=== PATIENT | female | born 1980 | race American Indian/Alaskan Native ===

== ENCOUNTER 2019-02-04 11:59 | Emergency (ER) | payer SELFPAY ==
--- NOTE | 2019-02-04 12:08 | Event Note ---
Date: 02/04/19 38 y.o , LMP around january 05, but states bleeding never stops, wearing 7 pads per days. has not yet seen log scaler, moved one year ago. Denies any pain. Sexually active, last intercourse 2 weeks ago. pmhx: htn pshx: c-sections x2 sochx: +tobacco, +marijuana, no alcohol or others.
[2019-02-04 12:31] LABS: Basophils % (Auto) 0.6 % (0.0-1.8); Eosinophils # (Auto) 0.1 K/mm3 (0.0-0.4); Eosinophils % (Auto) 1.1 % (0.0-4.3); Hematocrit 28.2 % (30.3-42.9); Hemoglobin 8.8 gm/dl (10.1-14.3); Lymphocytes # (Auto) 2.2 K/mm3 (1.2-5.4); Lymphocytes % (Auto) 39.2 % (13.4-35.0); Mean Corpuscular HGB Conc 31 % (30-34); Monocytes # (Auto) 0.5 K/mm3 (0.0-0.8); Platelet Count 306 K/mm3 (140-440); Red Blood Count 4.23 M/mm3 (3.65-5.03); Red Cell Distribution Width 19.2 % (13.2-15.2)
[2019-02-04 12:32] LABS: Mean Corpuscular Volume 67 fl (79-97)
[2019-02-04 12:44] LABS: HCG Qualitative,Urine Negative (Negative)
[2019-02-04 12:44] LABS: BUN/Creatinine Ratio 10; Blood Urea Nitrogen 7 mg/dL (7-17); Calcium 8.9 mg/dL (8.4-10.2); Hemolysis Index 1
[2019-02-04 12:45] LABS: Bilirubin,Urine NEG (Negative); Color,Urine Yellow (Yellow)
[2019-02-04 12:46] LABS: Blood,Urine MOD (Negative); Urobilinogen,Urine < 2.0 mg/dL (<2.0)
[2019-02-04 12:55] LABS: Protein,Urine >500 mg/dL (Negative); RBC,Urine > 182.0 /HPF (0.0-6.0); WBC,Urine > 182.0 /HPF (0.0-6.0)
[2019-02-04] MEDS ORDERED: NORMODYNE PO ONE (13:02)
[2019-02-04] MEDS ORDERED: K-DUR PO ONE (13:39)
--- NOTE | 2019-02-04 15:01 | Emergency Department Report ---
ED Female HPI - General Chief complaint: Vaginal Bleeding Stated complaint: BLEEDING FOR A MONTH Time Seen by Provider: 02/04/19 12:45 Source: patient Mode of arrival: Ambulatory Limitations: No Limitations - History of Present Illness Initial comments: This is a 38-year-old -[place] female who presents to the emergency room with abnormal vaginal bleeding for 1 minute. LMP 02/04/2019, . Patient reports heavy bleeding that never stops and large clots. She is wetting 7 pads per day. Patient reports recently moving to this area. Reports history of hypertension, endometriosis, and ovarian cyst. Current tobacco and marijuana smoker. She is sexually active with last intercourse 2 weeks ago. Denies pain, vaginal discharge, dysuria, and fever. MD Complaint: vaginal bleeding, pelvic pain Onset/Timin -: month(s) Severity scale (0 -10): 0 Improves with: none Worsens with: menstrual period Are you Now?: No Last Menstrual Period: 02/04/19 EDC: 11/11/19 Associated Symptoms: vaginal bleeding. denies: vaginal discharge, abdominal pain, nausea/vomiting, fever/chills, headaches, loss of appetite, dysuria, hematuria, rash, seizure, shortness of breath, syncope, weakness - Related Data Previous Rx's Medication Instructions Recorded Last Taken Type Sulfamethoxazole/Trimethoprim 1 each PO BID #6 tablet 02/04/19 Unknown Rx [Bactrim DS TAB] medroxyPROGESTERone ACETATE 10 mg PO QDAY #10 tablet 02/04/19 Unknown Rx [Provera] Allergies Allergy/AdvReac Type Severity Reaction Status Date / Time No Known Allergies Allergy Unverified 02/04/19 12:01 ED Review of Systems ROS: Stated complaint: BLEEDING FOR A MONTH Other details as noted in HPI Constitutional: denies: chills, fever Respiratory: denies: cough, shortness of breath, wheezing Cardiovascular: denies: chest pain, palpitations Gastrointestinal: denies: abdominal pain, nausea, diarrhea Genitourinary: abnormal menses. denies: urgency, dysuria, discharge Musculoskeletal: denies: back pain, joint swelling, arthralgia Skin: denies: rash, lesions Neurological: denies: headache, weakness, paresthesias Psychiatric: denies: anxiety, depression ED Past Medical Hx - Past Medical History Previous Medical History?: Yes Hx Hypertension: Yes - Surgical History Past Surgical History?: Yes Additional Surgical History: x 2 - Social History Smoking Status: Current Every Day Smoker Substance Use Type: Marijuana - Medications Home Medications: Home Medications Medication Instructions Recorded Confirmed Last Taken Type Sulfamethoxazole/Trimethoprim 1 each PO BID #6 tablet 02/04/19 Unknown Rx [Bactrim DS TAB] medroxyPROGESTERone ACETATE 10 mg PO QDAY #10 tablet 02/04/19 Unknown Rx [Provera] ED Physical Exam - General Limitations: No Limitations General appearance: alert, in no apparent distress, obese (morbidly) - Respiratory Respiratory exam: Present: normal lung sounds bilaterally. Absent: respiratory distress - Cardiovascular Cardiovascular Exam: Present: regular rate, normal rhythm. Absent: systolic murmur, diastolic murmur, rubs, gallop - GI/Abdominal GI/Abdominal exam: Present: soft, normal bowel sounds. Absent: distended, te nderness, guarding, rebound, rigid, organomegaly - Back Exam Back exam: Absent: CVA tenderness (R), CVA tenderness (L) - Neurological Exam Neurological exam: Present: alert, oriented X3, normal gait - Psychiatric Psychiatric exam: Present: normal affect, normal mood - Skin Skin exam: Present: warm, dry, intact, normal color. Absent: rash ED Course Vital Signs 02/04/19 02/04/19 02/04/19 12:05 13:12 13:20 Temperature 98.2 F 99.0 F Pulse Rate 98 H 91 H 92 H Respiratory 20 17 Rate Blood Pressure 156/102 148/84 Blood Pressure 148/84 [Right] O2 Sat by Pulse 98 99 Oximetry 02/04/19 15:05 Temperature 98.3 F Pulse Rate 90 Respiratory 16 Rate Blood Pressure Blood Pressure 139/87 [Right] O2 Sat by Pulse 98 Oximetry ED Medical Decision Making - Lab Data Result diagrams: 02/04/19 12:18 02/04/19 12:18 Lab Results 02/04/19 02/04/19 02/04/19 Range/Units 12:18 12:18 12:20 WBC 5.5 (4.5-11.0) K/mm3 RBC 4.23 (3.65-5.03) M/mm3 Hgb 8.8 L (10.1-14.3) gm/dl Hct 28.2 L (30.3-42.9) % MCV 67 L (79-97) fl MCH 21 L (28-32) pg MCHC 31 (30-34) % RDW 19.2 H (13.2-15.2) % Plt Count 306 (140-440) K/mm3 Lymph % (Auto) 39.2 H (13.4-35.0) % [place] % (Auto) 9.0 H (0.0-7.3) % Eos % (Auto) 1.1 (0.0-4.3) % Baso % (Auto) 0.6 (0.0-1.8) % Lymph # 2.2 (1.2-5.4) K/mm3 [place] # 0.5 (0.0-0.8) K/mm3 Eos # 0.1 (0.0-0.4) K/mm3 Baso # 0.0 (0.0-0.1) K/mm3 Seg Neutrophils % 50.1 (40.0-70.0) % Seg Neutrophils # 2.8 (1.8-7.7) K/mm3 Sodium 141 (137-145) mmol/L Potassium 3.3 L (3.6-5.0) mmol/L Chloride 103.6 (98-107) mmol/L Carbon Dioxide 28 (22-30) mmol/L Anion Gap 13 mmol/L BUN 7 (7-17) mg/dL Creatinine 0.7 (0.7-1.2) mg/dL Estimated GFR > 60 ml/min BUN/Creatinine Ratio 10 % Glucose 107 H (65-100) mg/dL Calcium 8.9 (8.4-10.2) mg/dL Urine Color Yellow (Yellow) Urine Turbidity Turbid (Clear) Urine pH 6.0 (5.0-7.0) Ur Specific [place] 1.013 (1.003-1.030) Urine Protein >500 (Negative) mg/dL Urine Glucose (UA) 50 (Negative) mg/dL Urine Ketones Tr (Negative) mg/dL Urine Blood Mod (Negative) Urine Nitrite Neg (Negative) Ur Reducing Substances Not Reportable Urine Bilirubin Neg (Negative) Urine Ictotest Not Reportable Urine Urobilinogen < 2.0 (<2.0) mg/dL Ur Leukocyte Esterase Neg (Negative) Urine WBC (Auto) > 182.0 H (0.0-6.0) /HPF Urine RBC (Auto) > 182.0 (0.0-6.0) /HPF Urine HCG, Qual Negative (Negative) - Radiology Data Radiology results: report reviewed CLINICAL DATA: dysfunctional uterine bleeding TECHNICAL DATA: Real-time imaging of the pelvic structures were performed along with Doppler imaging of the adnexa FINDINGS: The uterus measures 11.4 x 5.6 x 7.4 cm. Multiple uterine fibroids are present largest measuring 2.6 cm. The endometrium is thickened measuring 12 mm. The right ovary measures 4.4 x 2.8 x 4.0 cm. 2.9 complex cyst present right ovary. The left ovary is been removed. Doppler imaging demonstrates normal vascular flow to right ovary There is no significant quantity of free fluid dependently within the pelvis. IMPRESSION: 1. Multiple uterine fibroids 2. Thickened endometrium 3. Complex right ovarian cyst, recommend continued surveillance - Medical Decision Making Patient was examined by me. Vitals are stable and patient in no acute distress. Labs and ultrasound pelvic and transvaginal was obtained. Given labetalol for elevated blood pressure. Past history of HTN and discontinued prescribed medication. Ultrasound findings of 1. Multiple uterine fibroids. 2. Thickened endometrium. 3. Complex right ovarian cyst, recommend continued surveillance. Start bactrim for cystitis. Referral to a supervisor fishing for follow-up. Plan discussed with patient to discharge home and treat outpatient. Return to work on Wednesday. She agrees with ER plan. Patient discharged home in stable cond ition. Patient discharged home stable. Critical care attestation.: If time is entered above; I have spent that time in minutes in the direct care of this critically ill patient, excluding procedure time. ED Disposition Clinical Impression: Dysfunctional uterine bleeding Ovarian cyst Qualifiers: Laterality: right Qualified Code(s): N83.201 - Unspecified ovarian cyst, right side Abdominal pain Qualifiers: Abdominal location: lower abdomen, unspecified Qualified Code(s): R10.30 - Lower abdominal pain, unspecified Uterine fibroid Qualifiers: Uterine leiomyoma location: unspecified location Qualified Code(s): D25.9 - Leiomyoma of uterus, unspecified Acute cystitis Qualifiers: Hematuria presence: with hematuria Qualified Code(s): N30.01 - Acute cystitis with hematuria Disposition: TO HOME OR SELFCARE Is pt being admited?: No Does the pt Need Aspirin: No Condition: Stable Instructions: Dysfunctional Uterine Bleeding (ED), Ovarian Cyst (ED), Uterine Fibroids (ED) Additional Instructions: Follow-up with supervisor fishing from the referral list below. Prescriptions: Sulfamethoxazole/Trimethoprim [Bactrim DS TAB] 1 each PO BID #6 tablet medroxyPROGESTERone ACETATE [Provera] 10 mg PO QDAY #10 tablet Referrals: [facility] [Provider Group] - 3-5 Days [facility], [facility] [Provider Group] - 3-5 Days [facility] [Provider Group] - 3-5 Days [facility] [Provider Group] - 3-5 Days Forms: Work/School Release Form(ED) Time of Disposition: 15:19
--- NOTE | 2019-02-04 15:05 | Ultrasound Report ---
CLINICAL DATA: dysfunctional uterine bleeding TECHNICAL DATA: Real-time imaging of the pelvic structures were performed along with Doppler imaging of the adnexa FINDINGS: The uterus measures 11.4 x 5.6 x 7.4 cm. Multiple uterine fibroids are present largest measuring 2.6 cm. The endometrium is thickened measuring 12 mm. The right ovary measures 4.4 x 2.8 x 4.0 cm. 2.9 complex cyst present right ovary. The left ovary is been removed. Doppler imaging demonstrates normal vascular flow to right ovary There is no significant quantity of free fluid dependently within the pelvis. IMPRESSION: 1. Multiple uterine fibroids 2. Thickened endometrium 3. Complex right ovarian cyst, recommend continued surveillance WOMEN OF REPRODUCTIVE AGE: 1. Cysts <=3 cm: Normal physiologic findings; at the discretion of the interpreting physician whether or not to describe them in the imaging report; do not need follow-up. 2. Cysts >3 and <=5 cm: Should be described in the imaging report with a statement that they are almo st certainly benign; do not need follow-up. 3. Cysts >5 and <=7 cm: Should be described in the imaging report with a statement that they are almo st certainly benign; yearly follow-up with US recommended. 4. Cysts >7 cm: Since these may be difficult to assess completely with US, further imaging with magne tic resonance (MR) or surgical evaluation should be considered. POSTMENOPAUSAL WOMEN: 1. Cysts <=1 cm: Are clinically inconsequential; at the discretion of the interpreting physician whet her or not to describe them in the imaging report; do not need follow-up. 2. Cysts >1 and <=7 cm: Should be described in the imaging report with statement that they are almost certainly benign; yearly follow-up, at least initially, with US recommended. Some practices may opt to increase the lower size threshold for follow-up from 1 cm to as high as 3 cm. One may opt to portia nue follow-up annually or to decrease the frequency of follow-up once stability or decrease in size h as been confirmed. Cysts in the larger end of this range should still generally be followed on a regu lar basis. 3. Cysts >7 cm: Since these may be difficult to assess completely with US, further imaging with MR or surgical evaluation should be considered. Signer Name: Kavin Camarena MD Signed: 02/04/2019 3:01 PM Workstation Name: [id number]
[2019-02-04 15:06] VITALS: BP 139/87
--- NOTE | 2019-02-04 15:06 | Ultrasound Report ---
CLINICAL DATA: dysfunctional uterine bleeding TECHNICAL DATA: Real-time imaging of the pelvic structures were performed along with Doppler imaging of the adnexa FINDINGS: The uterus measures 11.4 x 5.6 x 7.4 cm. Multiple uterine fibroids are present largest measuring 2.6 cm. The endometrium is thickened measuring 12 mm. The right ovary measures 4.4 x 2.8 x 4.0 cm. 2.9 complex cyst present right ovary. The left ovary is been removed. Doppler imaging demonstrates normal vascular flow to right ovary There is no significant quantity of free fluid dependently within the pelvis. IMPRESSION: 1. Multiple uterine fibroids 2. Thickened endometrium 3. Complex right ovarian cyst, recommend continued surveillance Signer Name: Kavin Camarena MD Signed: 02/04/2019 3:02 PM Workstation Name: [id number]
== END 2019-02-04 15:31 | disposition home or self-care (01) ==
LOC: ED 11:59
DX: N83.201 Unspecified ovarian cyst, right side (principal); D25.9 Leiomyoma of uterus, unspecified; N30.01 Acute cystitis with hematuria; N93.8 Other specified abnormal uterine and vaginal bleeding; I10 Essential (primary) hypertension; J45.909 Unspecified asthma, uncomplicated
CPT/HCPCS: 36415; 76830; 76856; 80048; 81001; 81025; 85025